=== PATIENT | male | born 2000 | race Two or more races ===

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

== ENCOUNTER 2021-08-22 14:29 | Emergency (ER) | payer MEDICAID ==
[~2021-08-22] VITALS: Ht 182.9 cm; Wt 86.2 kg
[2021-08-22 15:13] VITALS: BP 124/65
== END 2021-08-22 15:31 | disposition home or self-care (01) ==
LOC: ER 14:29
DX: S93.402A Sprain of unspecified ligament of left ankle, initial encounter (principal); X50.1XXA Overexertion from prolonged static or awkward postures, initial encounter; Y93.67 Activity, basketball; Y92.89 Other specified places as the place of occurrence of the external cause; Y99.8 Other external cause status
CPT/HCPCS: 73610